=== PATIENT | female | born 1990 | race American Indian/Alaskan Native ===

== ENCOUNTER 2021-04-01 11:36 | Outpatient (CLI) | payer MEDICAID ==
[2021-04-01 12:42] VITALS: BP 109/61
[2021-04-01] MEDS ORDERED: LACTATED RINGERS 1,000 ML IV ONE (13:35)
[2021-04-01 14:52] LABS: Bacteria,Urine 1+ /HPF (Negative); Bilirubin,Urine NEG (Negative); Blood,Urine NEG (Negative); Color,Urine Yellow (Yellow); Mucus,Urine 2+ /HPF
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
== END 2021-04-01 17:00 | disposition home or self-care (01) ==
LOC: TRG 11:36 → APU 11:38 → TRG 17:00
DX: Z34.92 Encounter for supervision of normal pregnancy, unspecified, second trimester (principal); Z3A.23 23 weeks gestation of pregnancy
CPT/HCPCS: 59025; 76815; 81001

== ENCOUNTER 2021-04-10 19:10 | Outpatient (CLI) | payer MEDICAID ==
[2021-04-10 19:44] VITALS: BP 102/59
[2021-04-10] MEDS ORDERED: ACETAMINOPHEN 500 MG TAB PO ONE (21:23)
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
== END 2021-04-10 21:13 | disposition home or self-care (01) ==
LOC: TRG 19:10 → APU 19:13 → TRG 21:13
DX: O26.892 Other specified pregnancy related conditions, second trimester (principal); R10.2 Pelvic and perineal pain; Z3A.24 24 weeks gestation of pregnancy
CPT/HCPCS: 59025; 76815